=== PATIENT | female | born 1965 | race Caucasian/White ===

== ENCOUNTER 2020-05-01 10:46 | Outpatient (NON) | payer OTHER, SELFPAY ==
[2020-05-01 23:24] LABS: SARS-CoV-2 RNA PCR Negative
== END 2020-05-01 10:47 ==
LOC: ANHCOVIDDT 10:48
PROVIDERS: PCP Family Medicine Adolescent Medicine; Visit Provider Family Medicine Adolescent Medicine
DX: R50.9 Fever, unspecified (principal); R05 Cough; M79.10 Myalgia, unspecified site; Z20.828 Contact with and (suspected) exposure to other viral communicable diseases
CPT/HCPCS: 87635; C9803; U0003

== ENCOUNTER 2023-01-20 09:41 | Outpatient (CLI) | payer OTHER, SELFPAY ==
--- NOTE | 2023-01-20 10:01 | EST_ITS ---
Patient Info Name: Cassidy Jeter Age: 57 years : 1965 Gender: Female Ht: 64 in Wt: 93 lbs BSA: 1.37 m2 Exam Date: 01/20/2023 10:14 AM Exam Location: [facility] ([place] Stress Patient Status: Outpatient Admit Date: 01/20/2023 Staff Ordering Physician: Annalee Salvador APRN Attending Provider: Annalee Salvador APRN Exercise Technologist: Ashley Medrano RDCS Exercise Physician: Mann Khan DO Exam Type: CA stress test treadmill Study Info Indications R06.09 - Other forms of dyspnea A treadmill exercise stress test was performed. Summary 1. 1. Negative Puneet exercise stress test for ischemic ST changes by ECG criteria. However, patient achieved only 73% MPHR for age group which reduces sensitivity of the test. 2. 2. Reduced functional capacity, achieving 7 METs of workload. 3. 3. Baseline hypertension with hypertensive response to exercise. 4. 4. Appropriate HR response to exercise. 5. 5. Appropriate HR recovery at 1 minute post exercise. 6. 6. No imaging with stress testing. 7. 7. Patient informed of the above results. Protocol: Puneet Stress ECG Details Stage: REST Duration (min): 2 min : 54 sec Speed (mph): 0.0 Grade (%): 0 HR (bpm): 65 SBP (mmHg): 159 DBP (mmHg): 99 METS: --- Stage: REST Duration (min): 5 min : 13 sec Speed (mph): 0.0 Grade (%): 0 HR (bpm): 78 SBP (mmHg): 159 DBP (mmHg): 99 METS: --- Stage: STAGE 1 Duration (min): 1 min : 0 sec Speed (mph): 1.7 Grade (%): 10 HR (bpm): 87 SBP (mmHg): 159 DBP (mmHg): 99 METS: --- Stage: STAGE 1 Duration (min): 2 min : 0 sec Speed (mph): 1.7 Grade (%): 10 HR (bpm): 105 SBP (mmHg): 159 DBP (mmHg): 99 METS: --- Stage: STAGE 1 Duration (min): 3 min : 0 sec Speed (mph): 1.7 Grade (%): 10 HR (bpm): 108 SBP (mmHg): 204 DBP (mmHg): 105 METS: --- Stage: STAGE 2 Duration (min): 1 min : 0 sec Speed (mph): 2.5 Grade (%): 12 HR (bpm): 114 SBP (mmHg): 204 DBP (mmHg): 105 METS: --- Stage: STAGE 2 Duration (min): 1 min : 28 sec Speed (mph): 2.5 Grade (%): 12 HR (bpm): 118 SBP (mmHg): 204 DBP (mmHg): 105 METS: --- Stage: RECOVERY Duration (min): 0 min : 31 sec Speed (mph): 0.0 Grade (%): 0 HR (bpm): 114 SBP (mmHg): 217 DBP (mmHg): 106 METS: --- Stage: RECOVERY Duration (min): 1 min : 31 sec Speed (mph): 0.0 Grade (%): 0 HR (bpm): 92 SBP (mmHg): 217 DBP (mmHg): 106 METS: --- Stage: RECOVERY Duration (min): 2 min : 31 sec Speed (mph): 0.0 Grade (%): 0 HR (bpm): 89 SBP (mmHg): 217 DBP (mmHg): 106 METS: --- Stage: RECOVERY Duration (min): 3 min : 31 sec Speed (mph): 0.0 Grade (%): 0 HR (bpm): 83 SBP (mmHg): 181 DBP (mmHg): 102 METS: --- Stage: RECOVERY Duration (min): 4 min : 31 sec Speed (mph): 0.0 Grade (%): 0 HR (bpm): 79 SBP (mmHg): 181 DBP (mmHg): 102 METS: --- Stage: RECOVERY Duration (min): 5 min : 31 se
== END 2023-01-20 09:42 | disposition home or self-care (01) ==
PROVIDERS: PCP Family Medicine Adolescent Medicine; Visit Provider Nurse Practitioner Family
DX: R06.09 Other forms of dyspnea (principal)
CPT/HCPCS: 93017

== ENCOUNTER 2023-02-21 14:30 | Outpatient (CLI) | payer OTHER, SELFPAY ==
--- NOTE | 2023-02-22 07:36 | WPDPFTINT ---
PFT Procedure Performed PFT Procedure Performed Spirometry with Pre/Post Bronchodilator Plethysmography (Lung Vol) Diffusing Cap (DLCO) Flow Vol Loop PFT Interpretation This is a pulmonary function test with pre and post-bronchodilator spirometry, plethysmography and diffusing capacity. The test was performed and results interpreted in accordance with the 2019 and 2005 ATS/ERS Task Force guidelines respectively using the Global Lung Function Initiative-2012 reference equations. Patient demonstrated good effort and cooperation. Reproducibility criteria were met. The quality of the pre bronchodilator spirometry maneuver was Grade A and post bronchodilator spirometry maneuver was Grade A. Findings: Spirometry: There is decreased maximal expiratory airflow at all lung volumes with concave expiratory flow tracing. The contour the inspiratory flow tracing is normal. The pre bronchodilator FVC is 2.44 L, 75% predicted. The pre bronchodilator FEV1 is 0.66 L, 26% predicted. The pre bronchodilator FEV1: FVC ratio is 27%. The post bronchodilator FVC is 2.89 L, representing an 18% increase. The post bronchodilator FEV1 is 0.81 L, representing a 23% increase. The post bronchodilator FEV1: FVC ratio is 28%. Plethysmography: The total lung capacity is 10.91 L, 215% predicted. The functional residual capacity is 9.43 L, 329% predicted. The residual volume is 8.47 L, 433% predicted. Diffusing capacity: The diffusing capacity unadjusted for hemoglobin and carboxyhemoglobin is 6.0, 28% predicted. The diffusing capacity adjusted for alveolar volume is 1.88, 42% predicted. Impression: There is a very severe obstructive abnormality with significant improvement after inhaling a single dose of albuterol. The increase in residual volume is consistent with air trapping from an obstructive abnormality. Hyperinflation is present as demonstrated by the increase in functional residual capacity and total lung capacity and is consistent with an obstructive abnormality. The diffusing capacity unadjusted for hemoglobin and carboxyhemoglobin is severely decreased and remains moderately decreased when adjusted for alveolar volume. There are no prior studies for comparison
== END 2023-02-21 14:31 | disposition home or self-care (01) ==
PROVIDERS: PCP Family Medicine Adolescent Medicine; Visit Provider Nurse Practitioner Family
DX: R06.09 Other forms of dyspnea (principal); R94.2 Abnormal results of pulmonary function studies
CPT/HCPCS: 94060; 94726; 94729